=== PATIENT | female | born 1980 ===

== ENCOUNTER 2019-02-06 06:15 | Day surgery (SDC) | payer BC ==
[~2019-02-06 06:15] MED LIST: Buffered Lidocaine 1% SYRIN* 1 ML/SYRINGE INTRADERM ONE; Dexamethasone IV* 4 MG/ML 1 ML (4 MG) IV SLOW PU ONE; Famotidine IV* 10 MG/ML 2 ML (20 mg) IV ONE; Lactated Ringers 1000 ML Bag* 1,000 ML IV SCH
[2019-02-06] MEDS ORDERED: Dexamethasone IV* 4 MG/ML 1 ML (4 MG) ONE (06:25)
[2019-02-06] MEDS ORDERED: Famotidine IV* 10 MG/ML 2 ML (20 mg) ONE (06:25)
[2019-02-06] MEDS ORDERED: ceFAZolin 2 GM PREMIX in ORs 2 GM/50 ML BAG ONE (06:25)
[2019-02-06] MEDS ORDERED: Midazolam* 1 MG/ML 2 ML VIAL (2 MG) ONE (07:03)
[2019-02-06] MEDS ORDERED: KETAMINE HCL* 50 MG/ML 10 ML VIAL ONE (07:03)
[2019-02-06] MEDS ORDERED: fentaNYL* 50 MCG/ML 2 ML VIAL (100 MCG VIAL) ONE (07:03)
[2019-02-06] MEDS ORDERED: Ropivacaine 0.2% * 2 MG/ML VIAL ONE (07:08)
[2019-02-06] MEDS ORDERED: Ketorolac INJ* 30 MG/ML 1 ML VIAL ONE (07:09)
[2019-02-06] MEDS ORDERED: Lidocaine 1% w EPI 1:200,000* SDV 30 ML VIAL ONE (07:09)
[2019-02-06] MEDS ORDERED: Ondansetron INJ* 2 MG/ML VIAL ONE (07:09)
[2019-02-06] MEDS ORDERED: Propofol* 10 MG/ML 20 ML BTL ONE (07:09)
[2019-02-06] MEDS ORDERED: Naloxone* 0.4 MG/ML 1 ML VIAL IV PRN (07:20)
[2019-02-06] MEDS ORDERED: DiMENhydriNATE IV* 50 MG/ML VIAL IV PUSH PRN (07:20)
[2019-02-06] MEDS ORDERED: fentaNYL* 50 MCG/ML 2 ML VIAL (100 MCG VIAL) IV PRN (07:20)
[2019-02-06] MEDS ORDERED: HYDROmorphone INJ1* 1 MG/ML SYRINGE IV PRN (07:20)
[2019-02-06] MEDS ORDERED: HYDROmorphone INJ* 0.5 MG/0.5 ML SYRINGE ONE ×2 (08:01→08:46)
[2019-02-06] MEDS ORDERED: Acetaminophen IV 1GM/100ML * 100 ML IVPB PRN (08:10)
[2019-02-06] MEDS ORDERED: DiMENhydriNATE IV* 50 MG/ML VIAL ONE (10:03)
[2019-02-06] MEDS ORDERED: oxyCODONE/Acetamin 5/325 MG* TAB ONE (10:31)
[2019-02-06 11:30] VITALS: BP 118/75
--- NOTE | 2019-02-07 01:26 | OP ---
DATE OF OPERATION: 02/06/19 - [facility] DATE OF : 76 SURGEON: Hazel Cervantes MD. SOLAR PANEL INSTALLER: BLAINE Barron. An sales assistant entertainment and media was needed for the entirety of the case to help with positioning, retraction, and was utilized throughout all portions of the case. ANESTHESIOLOGIST: Dr. Rayo. ANESTHESIA: General. PRE-OP DIAGNOSIS: Left knee grade 3 anterior cruciate ligament rupture. POST-OP DIAGNOSIS: Left knee grade 3 anterior cruciate ligament rupture. OPERATIVE PROCEDURE: Left knee arthroscopy with ACL reconstruction using BTB autograft, partial lateral meniscectomy. COMPLICATIONS: None. ESTIMATED BLOOD LOSS: Minimal. TOURNIQUET TIME: 18 minutes, 250 mmHg. IMPLANTS: White [employer] Nephew SoftSilk 7 x 20 and 9 x 25. DISPOSITION: Stable. INDICATIONS: Bisi Caal is a 38-year-old female who has had left knee instability and pain. She has a history of Crohn disease and has had a Crohn flare. She has instability of the knee. She had also an ACL injury, which had been healed. She has elected to proceed with surgical treatment. Risks and benefits were discussed at length include, but not limited to, bleeding; infection; damage to nerves, vessels, surrounding structures; wound nonhealing; persistent pain; need for surgery; scarring; stiffness; incomplete relief of symptoms; risk of anesthesia; risk of retear. DESCRIPTION OF PROCEDURE: The patient was greeted in the preoperative area by the attending surgeon. The correct extremity was marked and consent was confirmed. The patient was brought back to the operating suite and placed in the supine position on the operating table and underwent general anesthesia and LMA intubation, after which she was appropriately positioned in the bed. The lateral post was positioned and unsterile tourniquet was placed high on the proximal thigh, del rio bag was placed at the foot of the bed to keep the knee at 90 degrees. The left leg was then prepped and draped in the usual sterile fashion, beginning with chlorhexidine soap, scrub, and alcohol wipe and a final prep of ChloraPrep. After appropriate surgical pause indicating site, side, procedure, and administration of antibiotics. The knee was intra-articularly injected with 1% lidocaine with epi. Esmarch was used to exsanguinate the limb. Tourniquet was inflated to 250 mmHg. A 15-blade was then used to make an incision in line with the patellar tendon achieving somewhat medially. Soft tissues were carefully dissected to expose the paratenon, which was incised and safe for linear closure layers. The patellar tendon was then measured and found to be about 30 mm in width, the center 10 mm was then harvested and full-thickness flaps, proximally the bone block was harvested for 9 x 23 mm bone block and then distally a 10 x 30. This was harvested using a sagittal saw and osteotome. Once the graft was harvested, it was prepared in the back table by the sales assistant entertainment and media while the attending surgeon closed the patellar tendon in interrupted fashion with 0 Vicryl in an interrupted fashion with care to prevent patella baja. After this portion was completed, tourniquet was deflated, attention was directed to arthroscopy. Lateral portal was made through the capsule with an 11-blade. The scope was brought into the joint, the joint was examined. There was abundant fat pad present. The anteromedial portal was localized with an 18-gauge needle. A shaver was used to debride back the abundant fat pad. The ACL had a grade 3 tear with some scarring to the PCL. The excess stump were excised. Once this was completed, attention was directed to the rest of the meniscus and diagnostic arthroscopy. The patellofemoral joint had grade 0-1 changes, medial meniscus was intact. Medial femoral condyle and medial plateau had grade 0 to 1 changes. Lateral compartment was intact. There was some fraying of the lateral meniscus, so a partial meniscectomy was done using a shaver to remove about 5% or less of the meniscus. There was some evidence of fissuring, some grade 1 to 2 changes in the plateau, grade 0 to 1 changes in the lateral femoral condyle. The gutters were intact. Attention was directed back to the ACL. The femoral and tibial insertions were then prepared using electrocautery device and shaver. Once the femoral insertion was identified, a starting awl was then used to jolanta the provisional start point in the center where the femoral tunnel would be. A tip-to-tip guide was then placed in the tibial foot print, it was sized 50 degrees. Once this was appropriately placed, it was overdrilled with 10-mm full-bore reamer. The excess bone graft was saved for bone grafting the tunnel defects. The tunnel was then rasped to remove any loose or shaved debris and found to be good position tunnel. The knee was then hyperflexed and the White and Nephew straight guide was then used to place a Beath pin to the center of the femoral foot print. This was then checked by changing from the lateral to the medial portal. This was then overdrilled with a size 9-mm low-profile reamer to a depth of 25 mm, excess bone and debris was removed. The tunnel was then notched. The #2 Ethibond suture was then passed trough the islet of Beath pin and passed through the lateral skin. The graft was then brought back from the back table and passed under direct arthroscopic visualization until well seated in the femoral tunnel. This was then secured with a size 7 x 20 mm SoftSilk screw with excellent purchase. The knee was then taken through full extension. There was no evidence of impingement. The knee was then cycled approximately 15 times to make sure there was no creep or obstruction of the graft. The scope was brought back into the joint and the ACL continued to remain in appropriate position and then the knee was placed in about 20 to 30 degrees of flexion with tension on the tibial sutures. The tibial bone block and tunnel was secured with a 9 x 25 mm screw with excellent purchase. The wounds were then copiously irrigated. The knee was taken through full range of motion. Mary Lou was assessed and found to be stable. Final images were obtained and the wounds were then copiously irrigated. The bone block was then placed in the patellar defect and the tibial defect and oversewn with 0 Vicryl. The peritoneum was closed with 2-0 Vicryl in running fashion. The skin was closed in layers with 3-0 Monocryl subcutaneous and 3-0 Monocryl running. Sterile dressings were applied. The wound was intra- articularly and superficially injected with 0.2% ropivacaine. Sterile dressing was applied, a Cryo/Cuff, hinged knee brace with the brace locked in full extension. The patient was awoken from anesthesia, transferred to PACU in stable condition. POSTOPERATIVE PLAN: She will be weightbearing as tolerated. She will start therapy in approximately 2 to 3 days. She will be discharged on pain medication. DVT prophylaxis was considered, but deferred due to no previous personal history or family history. She will be discharged on pain medication and antibiotics. I will see the patient back in 6 to 8 days. [id number]/[facility] #: [id number] [facility] CENTERChelo
== END 2019-02-06 11:18 | disposition home or self-care (01) ==
LOC: OREAST 06:15
PROVIDERS: ATTEND Orthopaedic Surgery
DX: S83.512A Sprain of anterior cruciate ligament of left knee, initial encounter (principal); S83.282A Other tear of lateral meniscus, current injury, left knee, initial encounter; K50.10 Crohn's disease of large intestine without complications; F41.9 Anxiety disorder, unspecified; Z87.891 Personal history of nicotine dependence; X58.XXXA Exposure to other specified factors, initial encounter; Y92.9 Unspecified place or not applicable
CPT/HCPCS: A9270-GY; C1713; J0690; J1100; J1170; J1240; J1885; J2001; J2250; J2405; J2704; J2795; J3010